=== PATIENT | female | born 1955 | race Caucasian/White ===

== ENCOUNTER 2022-08-12 14:06 | Observation (INO) | payer OTHER ==
[2022-08-12 14:26] VITALS: RESP 18
[2022-08-12 19:25] LABS: EOS % 1.1 % (0-4.5); HEMATOCRIT 36.2 % (32.4-45.2); LYMPH % 19.3 % (8-40); MCH 31.2 pg (25.7-33.7); MCHC 35.8 g/dl (32.0-36.0); MEAN PLT VOLUME 8.1 fl (7.5-11.1); NEUT % 69.6 % (42.8-82.8); PLATELET COUNT 269 10^3/uL (134-434); RBC 4.16 M/mm3 (3.60-5.2); RDW 13.6 % (11.6-15.6)
[2022-08-12] MEDS ORDERED: APIXABAN 5 MG TABLET ONE (19:28)
[2022-08-12] MEDS: APIXABAN 5 MG TABLET PO SCH ×2 (19:36→21:37)
[2022-08-12 19:57] LABS: POTASSIUM 3.3 mmol/L (3.5-5.1)
[2022-08-12 19:59] LABS: CALCIUM 10.1 mg/dL (8.5-10.1)
[2022-08-12 20:01] LABS: ALBUMIN 4.4 g/dl (3.4-5.0); BLOOD UREA NITROGEN 24.7 mg/dL (7-18); MAGNESIUM 2.1 mg/dL (1.8-2.4)
[2022-08-12 20:03] LABS: CREATININE 1.2 mg/dL (0.55-1.3)
[2022-08-12 20:04] LABS: TOT PROT 7.7 g/dl (6.4-8.2)
[2022-08-12] MEDS: levETIRAcetam 500 MG TABLET (FP) PO SCH (21:37)
[2022-08-12] MEDS: hydrALAZINE HCL 10 MG TABLET PO SCH (21:37)
[2022-08-12] MEDS ORDERED: risperiDONE 0.5 MG TABLET PO SCH (22:00)
[2022-08-12] MEDS ORDERED: METOPROLOL TARTRATE 25 MG TABLET (FP) PO SCH (22:00)
[2022-08-13 00:39] VITALS: BMI 22.7
[2022-08-13] MEDS ORDERED: LEVOTHYROXINE NA 75 MCG TABLET (FP) PO SCH (07:00)
[2022-08-13 07:25] LABS: BASO % 0.7 % (0-2.0); EOS % 1.7 % (0-4.5); HEMATOCRIT 34.1 % (32.4-45.2); HEMOGLOBIN 12.6 GM/dL (10.7-15.3); LYMPH % 25.2 % (8-40); MCH 31.9 pg (25.7-33.7); MEAN CELL VOLUME 86.3 fl (80-96); MEAN PLT VOLUME 9.1 fl (7.5-11.1); MONO % 10.6 % (3.8-10.2); NEUT % 61.8 % (42.8-82.8); PLATELET COUNT 251 10^3/uL (134-434); RBC 3.96 M/mm3 (3.60-5.2); RDW 13.5 % (11.6-15.6); WHITE BLOOD COUNT 6.7 K/mm3 (4.0-10.0)
[2022-08-13 07:31] LABS: POTASSIUM 3.3 mmol/L (3.5-5.1)
[2022-08-13 07:39] LABS: BLOOD UREA NITROGEN 28.8 mg/dL (7-18); CALCIUM 9.9 mg/dL (8.5-10.1); MAGNESIUM 1.9 mg/dL (1.8-2.4)
[2022-08-13 07:41] LABS: BILIRUBIN,TOTAL 1.3 mg/dL (0.2-1); TOT PROT 7.4 g/dl (6.4-8.2)
[2022-08-13 07:42] LABS: CREATININE 1.3 mg/dL (0.55-1.3); PHOSPHOROUS 3.5 mg/dL (2.5-4.9)
[2022-08-13 08:52] LABS: N-TERMINAL BNP 1512.4 pg/ml (5-125)
[2022-08-13] MEDS ORDERED: POTASSIUM CHLORIDE ORAL LIQUID 20 MEQ/15 ML PO ONE (09:00)
[2022-08-13] MEDS ORDERED: CLOPIDOGREL BISULFATE 75 MG TABLET (FP) PO SCH (10:00)
[2022-08-13] MEDS ORDERED: metoPROLOL SUCCINATE 25 MG TAB.SR.24H (FP) PO SCH (10:00)
[2022-08-13] MEDS ORDERED: amLODIPine BESYLATE 10 MG TABLET (FP) PO SCH (10:00)
[2022-08-13] MEDS ORDERED: LOSARTAN POTASSIUM 50 MG TABLET PO SCH (10:00)
[2022-08-13] MEDS ORDERED: HYDROCHLOROTHIAZIDE 12.5 MG CAPSULE (FP) PO SCH (10:00)
[2022-08-13] MEDS ORDERED: ASCORBIC ACID 500 MG TABLET (FP) PO SCH (10:00)
[2022-08-13] MEDS: hydrALAZINE HCL 10 MG TABLET PO SCH (10:16)
[2022-08-13] MEDS: levETIRAcetam 500 MG TABLET (FP) PO SCH (10:17)
[2022-08-13] MEDS: APIXABAN 5 MG TABLET PO SCH (10:17)
[2022-08-13 16:03] VITALS: BP 114/70; PULSE 102; TEMP 98.3
== END 2022-08-13 16:15 | disposition home or self-care (01) ==
LOC: JER 14:06 → JERBED 16:45 → J4W 21:17
PROVIDERS: ADMIT Internal Medicine; ATTEND Internal Medicine
DX: R55 Syncope and collapse (principal); I48.91 Unspecified atrial fibrillation; I10 Essential (primary) hypertension; Z86.73 Personal history of transient ischemic attack (TIA), and cerebral infarction without residual deficits
CPT/HCPCS: 36415; 80053; 80061; 83735; 83880; 84100; 84439; 84443; 85025; 93005; 93010; 93306-TC; 99285-25; C9803-CS; G0378; U0003; U0005